=== PATIENT | female | born 1950 | race Asian ===

== ENCOUNTER 2017-10-08 23:25 | Inpatient (IN) | payer MEDICARE, OTHER, MEDICAID ==
[2017-10-09 00:38] LABS: ADD MAN DIFF? NO
[2017-10-09 00:47] LABS: BASOPHILS % 0.5 % (0.0-2.0); EOSINOPHILS % 0.7 % (0.0-7.0); HEMATOCRIT 39.5 % (37.0-47.0); HEMOGLOBIN 13.1 g/dl (12.0-16.0); IMMATURE GRANS #M 0.02 10^3/ul; IMMATURE GRANS % (M) 0.5 %; LYMPHOCYTES # 1.2 10^3/ul (0.8-2.9); LYMPHOCYTES % 27.1 % (15.0-51.0); MEAN CORPUSCULAR HEMOGLOBIN 29.5 pg (29.0-33.0); MEAN CORPUSCULAR HGB CONC 33.2 g/dl (32.0-37.0); MEAN PLATELET VOLUME 10.1 fl (7.4-10.4); MONOCYTE # 0.3 10^3/ul (0.3-0.9); MONOCYTES % 7.3 % (0.0-11.0); NEUTROPHIL # 2.8 10^3/ul (1.6-7.5); NEUTROPHILS % 63.9 % (39.0-77.0); PLATELET COUNT 268 10^3/UL (140-415); RED BLOOD COUNT 4.44 10^6/ul (4.20-5.40); RED CELL DISTRIBUTION WIDTH 12.5 % (11.5-14.5)
[2017-10-09 00:47] LABS: WHITE BLOOD COUNT 4.4 10^3/ul (4.8-10.8)
[2017-10-09 01:04] LABS: ANION GAP 14 (8-16); BLOOD UREA NITROGEN 16 mg/dl (7-20); CALCIUM 9.8 mg/dl (8.4-10.2); CARBON DIOXIDE 29 mmol/L (21-31); CHLORIDE 100 mmol/L (97-110); CREATININE 0.94 mg/dl (0.44-1.00); GLUCOSE 356 mg/dl (70-220); POTASSIUM 4.5 mmol/L (3.5-5.1); SODIUM 138 mmol/L (135-144)
[2017-10-09 01:07] LABS: PROTIME 12.2 Sec (11.9-14.9)
[2017-10-09 01:08] LABS: PARTIAL THROMBOPLASTIN TIME 32.4 Sec (25.0-35.0)
[2017-10-09 01:15] LABS: TROPONIN-I < 0.010 ng/ml (0.000-0.120)
[2017-10-09] MEDS: INSULIN LISPRO 100 UNIT/ML VIAL SC (03:41)
[2017-10-09] MEDS ORDERED: ACETAMINOPHEN 325 MG TAB PO (04:00)
[2017-10-09] MEDS ORDERED: BISACODYL (EC) 5 MG TAB PO (04:00)
[2017-10-09] MEDS ORDERED: DOCUSATE SODIUM 100 MG CAP PO (04:00)
[2017-10-09] MEDS ORDERED: NACL 0.9% 3 ML SYG IV (04:00)
[2017-10-09] MEDS: MECLIZINE 12.5 MG TAB PO (04:55)
[2017-10-09] MEDS ORDERED: hydrALAzine 20 MG INJ IV (05:00)
[2017-10-09 06:08] LABS: CHOL/HDL RATIO 5.5 RATIO; CHOLESTEROL 259 mg/dl (100-200); HDL CHOLESTEROL 47 mg/dl (35-98); LDL CHOLESTEROL,CALCULATED 181 mg/dl; TRIGLYCERIDES 157 mg/dl (0-149)
[2017-10-09 06:08] LABS: MAGNESIUM 1.9 mg/dl (1.7-2.5)
[2017-10-09 06:10] LABS: HEMOGLOBIN A1C 8.4 % (0-5.9)
[2017-10-09] MEDS ORDERED: GLUCAGON 1 MG INJ IM (08:00)
[2017-10-09] MEDS: INSULIN ASPART [NOVOLOG] 3 ML PEN SC ×4 (08:00→20:41)
[2017-10-09] MEDS ORDERED: GLUCOSE GEL 15 GRAM TUBE PO ×2 (08:00)
[2017-10-09] MEDS ORDERED: GLUCOSE GEL 15 GRAM TUBE BUCCAL (08:00)
[2017-10-09] MEDS ORDERED: DEXTROSE 50% 50 ML SYRINGE IV ×2 (08:00)
[2017-10-09] MEDS: ASPIRIN (EC) 81 MG TAB PO ×2 (09:00→09:25)
[2017-10-09] MEDS: CHOLECALCIFEROL 1,000 UNIT TAB PO (09:24)
[2017-10-09] MEDS: ESCITALOPRAM 10 MG TAB PO (09:25)
[2017-10-09] MEDS: ATORVASTATIN 40 MG TAB PO (20:41)
[2017-10-10] MEDS: ACCU-CHEK XX (02:00)
[2017-10-10 06:12] LABS: ADD MAN DIFF? NO
[2017-10-10 06:20] LABS: BASOPHILS % 0.6 % (0.0-2.0); EOSINOPHILS # 0.1 10^3/ul (0.0-0.5); EOSINOPHILS % 1.7 % (0.0-7.0); HEMATOCRIT 41.1 % (37.0-47.0); HEMOGLOBIN 13.5 g/dl (12.0-16.0); IMMATURE GRANS #M 0.02 10^3/ul; IMMATURE GRANS % (M) 0.4 %; LYMPHOCYTES # 1.8 10^3/ul (0.8-2.9); LYMPHOCYTES % 33.6 % (15.0-51.0); MEAN CORPUSCULAR HEMOGLOBIN 28.9 pg (29.0-33.0); MEAN CORPUSCULAR HGB CONC 32.8 g/dl (32.0-37.0); MEAN PLATELET VOLUME 9.8 fl (7.4-10.4); MONOCYTE # 0.4 10^3/ul (0.3-0.9); MONOCYTES % 6.8 % (0.0-11.0); NEUTROPHIL # 3.1 10^3/ul (1.6-7.5); NEUTROPHILS % 56.9 % (39.0-77.0); PLATELET COUNT 267 10^3/UL (140-415); RED BLOOD COUNT 4.67 10^6/ul (4.20-5.40); RED CELL DISTRIBUTION WIDTH 12.7 % (11.5-14.5)
[2017-10-10 06:20] LABS: WHITE BLOOD COUNT 5.5 10^3/ul (4.8-10.8)
[2017-10-10 06:36] LABS: ALANINE AMINOTRANSFERASE 67 IU/L (13-69); ALBUMIN 4.3 g/dl (3.3-4.9); ALKALINE PHOSPHATASE 59 IU/L (42-121); ANION GAP 14 (8-16); ASPARTATE AMINO TRANSFERASE 62 IU/L (15-46); BILIRUBIN,INDIRECT 0.7 mg/dl (0-1.1); BILIRUBIN,TOTAL 0.7 mg/dl (0.2-1.3); BLOOD UREA NITROGEN 16 mg/dl (7-20); CALCIUM 9.2 mg/dl (8.4-10.2); CARBON DIOXIDE 26 mmol/L (21-31); CHLORIDE 105 mmol/L (97-110); CREATININE 0.65 mg/dl (0.44-1.00); GLUCOSE 195 mg/dl (70-220); SODIUM 141 mmol/L (135-144); TOTAL PROTEIN 7.6 g/dl (6.1-8.1)
[2017-10-10 07:03] LABS: THYROID STIMULATING HORMONE 0.556 MIU/L (0.465-4.680)
[2017-10-10] MEDS: INSULIN ASPART [NOVOLOG] 3 ML PEN SC ×4 (07:46→21:00)
[2017-10-10] MEDS: ASPIRIN (EC) 81 MG TAB PO (09:00)
[2017-10-10] MEDS: ESCITALOPRAM 10 MG TAB PO (09:11)
[2017-10-10] MEDS: CHOLECALCIFEROL 1,000 UNIT TAB PO (09:11)
[2017-10-10] MEDS: ATORVASTATIN 40 MG TAB PO (21:34)
[2017-10-11] MEDS: ACCU-CHEK XX (02:00)
[2017-10-11] MEDS: INSULIN ASPART [NOVOLOG] 3 ML PEN SC ×5 (08:00→20:38)
[2017-10-11] MEDS: ESCITALOPRAM 10 MG TAB PO (08:11)
[2017-10-11] MEDS: CHOLECALCIFEROL 1,000 UNIT TAB PO (08:11)
[2017-10-11] MEDS: ASPIRIN (EC) 81 MG TAB PO (08:11)
[2017-10-11] MEDS ORDERED: KETOROLAC 15 MG INJ IV (12:00)
[2017-10-11] MEDS: KETOROLAC 15 MG INJ IV (12:15)
[2017-10-11] MEDS: MECLIZINE 12.5 MG TAB PO ×2 (12:15→20:36)
[2017-10-11] MEDS: ATORVASTATIN 40 MG TAB PO (20:38)
[2017-10-11] MEDS: INSULIN GLARGINE [LANTus] (100 UNITS/ML) SYG SC (20:39)
[2017-10-12] MEDS: ACCU-CHEK XX (01:01)
[2017-10-12] MEDS ORDERED: ACCU-CHEK XX ×3 (02:00)
[2017-10-12] MEDS: MECLIZINE 12.5 MG TAB PO ×2 (08:31→12:17)
[2017-10-12] MEDS: ASPIRIN (EC) 81 MG TAB PO (08:31)
[2017-10-12] MEDS: ESCITALOPRAM 10 MG TAB PO (08:31)
[2017-10-12] MEDS: CHOLECALCIFEROL 1,000 UNIT TAB PO (08:31)
[2017-10-12] MEDS: INSULIN ASPART [NOVOLOG] 3 ML PEN SC ×7 (08:38→20:17)
[2017-10-12] MEDS: AMLODIPINE 10 MG TAB PO (08:40)
[2017-10-12] MEDS: DIMENHYDRINATE 50 MG TAB PO (17:07)
[2017-10-12] MEDS: ONDANSETRON 4 MG INJ IV (17:07)
[2017-10-12] MEDS: ATORVASTATIN 40 MG TAB PO (20:16)
[2017-10-12] MEDS: INSULIN GLARGINE [LANTus] (100 UNITS/ML) SYG SC (20:16)
[2017-10-12] MEDS: MECLIZINE 25 MG TAB PO (20:16)
[2017-10-13] MEDS: ACCU-CHEK XX (02:00)
[2017-10-13 05:48] LABS: ADD MAN DIFF? NO
[2017-10-13 05:57] LABS: WHITE BLOOD COUNT 5.8 10^3/ul (4.8-10.8)
[2017-10-13 05:57] LABS: BASOPHILS % 0.3 % (0.0-2.0); EOSINOPHILS # 0.1 10^3/ul (0.0-0.5); EOSINOPHILS % 1.5 % (0.0-7.0); HEMATOCRIT 42.8 % (37.0-47.0); IMMATURE GRANS #M 0.02 10^3/ul; IMMATURE GRANS % (M) 0.3 %; LYMPHOCYTES % 34.9 % (15.0-51.0); MEAN CORPUSCULAR HEMOGLOBIN 28.8 pg (29.0-33.0); MEAN CORPUSCULAR HGB CONC 32.7 g/dl (32.0-37.0); MEAN CORPUSCULAR VOLUME 88.1 fl (82.0-101.0); MEAN PLATELET VOLUME 9.9 fl (7.4-10.4); MONOCYTE # 0.4 10^3/ul (0.3-0.9); MONOCYTES % 7.4 % (0.0-11.0); NEUTROPHIL # 3.2 10^3/ul (1.6-7.5); NEUTROPHILS % 55.6 % (39.0-77.0); PLATELET COUNT 294 10^3/UL (140-415); RED BLOOD COUNT 4.86 10^6/ul (4.20-5.40); RED CELL DISTRIBUTION WIDTH 12.4 % (11.5-14.5)
[2017-10-13 06:35] LABS: ANION GAP 14 (8-16); BLOOD UREA NITROGEN 23 mg/dl (7-20); CALCIUM 9.4 mg/dl (8.4-10.2); CARBON DIOXIDE 28 mmol/L (21-31); CHLORIDE 106 mmol/L (97-110); CREATININE 0.82 mg/dl (0.44-1.00); GLUCOSE 149 mg/dl (70-220); SODIUM 144 mmol/L (135-144)
[2017-10-13 06:36] LABS: MAGNESIUM 1.9 mg/dl (1.7-2.5)
[2017-10-13 06:36] LABS: PHOSPHORUS 4.5 mg/dl (2.5-4.9)
[2017-10-13] MEDS: INSULIN ASPART [NOVOLOG] 3 ML PEN SC ×6 (08:01→17:14)
[2017-10-13] MEDS: MECLIZINE 25 MG TAB PO ×2 (08:59→13:19)
[2017-10-13] MEDS: ASPIRIN (EC) 81 MG TAB PO (08:59)
[2017-10-13] MEDS: CHOLECALCIFEROL 1,000 UNIT TAB PO (08:59)
[2017-10-13] MEDS: AMLODIPINE 10 MG TAB PO (09:00)
[2017-10-13] MEDS: ESCITALOPRAM 10 MG TAB PO (09:00)
== END 2017-10-13 18:15 | disposition short-term general hospital (02) | DRG 149 ==
LOC: E/R 23:25 → 5EC 10-11 23:30 → 6WM 10-09 03:10
DX: H83.09 Labyrinthitis, unspecified ear (principal); E78.5 Hyperlipidemia, unspecified; E11.9 Type 2 diabetes mellitus without complications; I10 Essential (primary) hypertension; Z86.73 Personal history of transient ischemic attack (TIA), and cerebral infarction without residual deficits; Z79.82 Long term (current) use of aspirin; Z79.84 Long term (current) use of oral hypoglycemic drugs
CPT/HCPCS: 36415; 70450; 70551; 71045; 72125; 80048; 80053; 80061; 82962; 83036; 83735; 84100; 84443; 84484; 85025; 85610; 85730; 93005; 93306; 97110; 97116; 97163; 97165; 99285-25

== ENCOUNTER 2017-10-13 19:14 | Inpatient (IN) | payer MEDICARE, OTHER ==
[2017-10-13] MEDS ORDERED: MAGNESIUM HYDROXIDE 30ML CUP PO (20:30)
[2017-10-13] MEDS ORDERED: LACTULOSE 30ML CUP PO (20:30)
[2017-10-13] MEDS ORDERED: GLUCAGON 1 MG INJ IM (21:30)
[2017-10-13] MEDS ORDERED: KETOROLAC 15 MG INJ IV (21:30)
[2017-10-13] MEDS ORDERED: BISACODYL (EC) 5 MG TAB PO (21:30)
[2017-10-13] MEDS ORDERED: DEXTROSE 50% 50 ML SYRINGE IV ×2 (21:30)
[2017-10-13] MEDS ORDERED: GLUCOSE GEL 15 GRAM TUBE PO ×2 (21:30)
[2017-10-13] MEDS ORDERED: GLUCOSE GEL 15 GRAM TUBE BUCCAL (21:30)
[2017-10-13] MEDS ORDERED: ONDANSETRON 4 MG INJ IV (21:30)
[2017-10-13] MEDS ORDERED: ACETAMINOPHEN 325 MG TAB PO (21:30)
[2017-10-13] MEDS: INSULIN ASPART [NOVOLOG] 3 ML PEN SC (22:00)
[2017-10-13] MEDS: ATORVASTATIN 40 MG TAB PO (22:55)
[2017-10-13] MEDS: MECLIZINE 25 MG TAB PO (22:59)
[2017-10-13] MEDS: INSULIN GLARGINE [LANTus] (100 UNITS/ML) SYG SC (23:05)
[2017-10-14 02:03] LABS: ADD UMIC YES; UR ASCORBIC ACID NEGATIVE (NEGATIVE); UR BILIRUBIN (Dip) NEGATIVE (NEGATIVE); UR BLOOD (Dip) NEGATIVE (NEGATIVE); UR CLARITY CLEAR (CLEAR); UR COLOR YELLOW (YELLOW); UR GLUCOSE (Dip) 3+ mg/dL (NEGATIVE); UR KETONES (Dip) NEGATIVE (NEGATIVE); UR LEUKOCYTE ESTERASE (Dip) TRACE Leu/ul (NEGATIVE); UR NITRITE (Dip) NEGATIVE (NEGATIVE); UR RBC 0 /HPF (0-5); UR SPECIFIC GRAVITY (Dip) 1.018 (1.003-1.030); UR SQUAMOUS EPITHELIAL CELL FEW /HPF (FEW); UR TOTAL PROTEIN (Dip) NEGATIVE (NEGATIVE); UR UROBILINOGEN (Dip) NEGATIVE (NEGATIVE); UR WBC 7 /HPF (0-5)
[2017-10-14 06:52] LABS: ADD MAN DIFF? NO
[2017-10-14 07:05] LABS: BASOPHILS % 0.6 % (0.0-2.0); EOSINOPHILS # 0.1 10^3/ul (0.0-0.5); EOSINOPHILS % 1.2 % (0.0-7.0); HEMATOCRIT 40.3 % (37.0-47.0); HEMOGLOBIN 13.5 g/dl (12.0-16.0); LYMPHOCYTES # 1.9 10^3/ul (0.8-2.9); MEAN CORPUSCULAR HEMOGLOBIN 29.3 pg (29.0-33.0); MEAN CORPUSCULAR HGB CONC 33.5 g/dl (32.0-37.0); MEAN CORPUSCULAR VOLUME 87.4 fl (82.0-101.0); MEAN PLATELET VOLUME 9.8 fl (7.4-10.4); MONOCYTE # 0.4 10^3/ul (0.3-0.9); MONOCYTES % 7.5 % (0.0-11.0); NEUTROPHIL # 2.7 10^3/ul (1.6-7.5); NEUTROPHILS % 53.5 % (39.0-77.0); PLATELET COUNT 269 10^3/UL (140-415); RED BLOOD COUNT 4.61 10^6/ul (4.20-5.40); RED CELL DISTRIBUTION WIDTH 12.3 % (11.5-14.5)
[2017-10-14 07:05] LABS: WHITE BLOOD COUNT 5.1 10^3/ul (4.8-10.8)
[2017-10-14 07:35] LABS: ALANINE AMINOTRANSFERASE 74 IU/L (13-69); ALBUMIN 3.9 g/dl (3.3-4.9); ALBUMIN/GLOBULIN RATIO 1.21; ALKALINE PHOSPHATASE 60 IU/L (42-121); ANION GAP 13 (8-16); ASPARTATE AMINO TRANSFERASE 50 IU/L (15-46); BILIRUBIN,INDIRECT 0.6 mg/dl (0-1.1); BILIRUBIN,TOTAL 0.6 mg/dl (0.2-1.3); BLOOD UREA NITROGEN 21 mg/dl (7-20); CALCIUM 9.2 mg/dl (8.4-10.2); CARBON DIOXIDE 30 mmol/L (21-31); CHLORIDE 105 mmol/L (97-110); CREATININE 0.82 mg/dl (0.44-1.00); GLUCOSE 155 mg/dl (70-220); SODIUM 144 mmol/L (135-144); TOTAL PROTEIN 7.1 g/dl (6.1-8.1)
[2017-10-14] MEDS: INSULIN ASPART [NOVOLOG] 3 ML PEN SC ×5 (08:36→21:00)
[2017-10-14] MEDS: ASPIRIN (EC) 81 MG TAB PO (08:38)
[2017-10-14] MEDS: ESCITALOPRAM 10 MG TAB PO (08:38)
[2017-10-14] MEDS: CHOLECALCIFEROL 1,000 UNIT TAB PO (08:39)
[2017-10-14] MEDS: AMLODIPINE 10 MG TAB PO (08:44)
[2017-10-14] MEDS: MECLIZINE 25 MG TAB PO ×3 (10:51→21:17)
[2017-10-14] MEDS: metFORMIN 500 MG TAB PO (17:33)
[2017-10-14] MEDS: ATORVASTATIN 40 MG TAB PO (21:17)
[2017-10-14] MEDS: INSULIN GLARGINE [LANTus] (100 UNITS/ML) SYG SC (21:21)
[2017-10-15] MEDS: INSULIN ASPART [NOVOLOG] 3 ML PEN SC ×4 (07:48→21:09)
[2017-10-15] MEDS: metFORMIN 500 MG TAB PO ×2 (07:50→17:12)
[2017-10-15] MEDS: ESCITALOPRAM 10 MG TAB PO (08:54)
[2017-10-15] MEDS: MECLIZINE 25 MG TAB PO ×3 (08:54→21:02)
[2017-10-15] MEDS: AMLODIPINE 10 MG TAB PO (08:54)
[2017-10-15] MEDS: CHOLECALCIFEROL 1,000 UNIT TAB PO (08:54)
[2017-10-15] MEDS: ASPIRIN (EC) 81 MG TAB PO (08:54)
[2017-10-15] MEDS ORDERED: VITAMIN A & D 5 GM OINT PACKET TOP (11:47)
[2017-10-15] MEDS: ATORVASTATIN 40 MG TAB PO (21:02)
[2017-10-15] MEDS: INSULIN GLARGINE [LANTus] (100 UNITS/ML) SYG SC (21:09)
[2017-10-16] MEDS: INSULIN ASPART [NOVOLOG] 3 ML PEN SC ×4 (07:35→20:54)
[2017-10-16] MEDS: metFORMIN 500 MG TAB PO ×2 (07:42→17:27)
[2017-10-16] MEDS: ASPIRIN (EC) 81 MG TAB PO (08:50)
[2017-10-16] MEDS: MECLIZINE 25 MG TAB PO ×3 (08:51→20:47)
[2017-10-16] MEDS: CHOLECALCIFEROL 1,000 UNIT TAB PO (08:51)
[2017-10-16] MEDS: ESCITALOPRAM 10 MG TAB PO (08:51)
[2017-10-16] MEDS: AMLODIPINE 10 MG TAB PO (08:52)
[2017-10-16] MEDS: FOSFOMYCIN 3 GM PACKET PO (19:42)
[2017-10-16] MEDS: ATORVASTATIN 40 MG TAB PO (20:47)
[2017-10-16] MEDS: INSULIN GLARGINE [LANTus] (100 UNITS/ML) SYG SC (20:55)
[2017-10-17] MEDS: INSULIN ASPART [NOVOLOG] 3 ML PEN SC ×4 (07:35→20:56)
[2017-10-17] MEDS: AMLODIPINE 10 MG TAB PO (08:06)
[2017-10-17] MEDS: metFORMIN 500 MG TAB PO ×2 (08:06→17:21)
[2017-10-17] MEDS: CHOLECALCIFEROL 1,000 UNIT TAB PO (08:06)
[2017-10-17] MEDS: MECLIZINE 25 MG TAB PO ×3 (08:06→20:50)
[2017-10-17] MEDS: ESCITALOPRAM 10 MG TAB PO (08:06)
[2017-10-17] MEDS: ASPIRIN (EC) 81 MG TAB PO (08:07)
[2017-10-17] MEDS: ATORVASTATIN 40 MG TAB PO (20:50)
[2017-10-17] MEDS: INSULIN GLARGINE [LANTus] (100 UNITS/ML) SYG SC (20:57)
[2017-10-18] MEDS: INSULIN ASPART [NOVOLOG] 3 ML PEN SC ×4 (07:30→20:48)
[2017-10-18] MEDS: metFORMIN 500 MG TAB PO ×2 (07:31→17:16)
[2017-10-18] MEDS: CHOLECALCIFEROL 1,000 UNIT TAB PO (08:33)
[2017-10-18] MEDS: MECLIZINE 25 MG TAB PO ×3 (08:33→20:48)
[2017-10-18] MEDS: ESCITALOPRAM 10 MG TAB PO (08:34)
[2017-10-18] MEDS: AMLODIPINE 10 MG TAB PO (08:34)
[2017-10-18] MEDS: ASPIRIN (EC) 81 MG TAB PO (08:34)
[2017-10-18] MEDS: ATORVASTATIN 40 MG TAB PO (20:48)
[2017-10-18] MEDS: INSULIN GLARGINE [LANTus] (100 UNITS/ML) SYG SC (20:54)
[2017-10-19] MEDS: INSULIN ASPART [NOVOLOG] 3 ML PEN SC ×4 (07:35→20:50)
[2017-10-19] MEDS: MECLIZINE 25 MG TAB PO ×3 (08:28→20:40)
[2017-10-19] MEDS: ESCITALOPRAM 10 MG TAB PO (08:28)
[2017-10-19] MEDS: CHOLECALCIFEROL 1,000 UNIT TAB PO (08:29)
[2017-10-19] MEDS: metFORMIN 500 MG TAB PO ×2 (08:30→17:32)
[2017-10-19] MEDS: ASPIRIN (EC) 81 MG TAB PO (08:30)
[2017-10-19] MEDS: AMLODIPINE 10 MG TAB PO (08:30)
[2017-10-19] MEDS: ATORVASTATIN 40 MG TAB PO (20:40)
[2017-10-19] MEDS: INSULIN GLARGINE [LANTus] (100 UNITS/ML) SYG SC (20:50)
[2017-10-20] MEDS: INSULIN ASPART [NOVOLOG] 3 ML PEN SC ×4 (07:35→20:37)
[2017-10-20] MEDS: MECLIZINE 25 MG TAB PO ×3 (08:15→20:30)
[2017-10-20] MEDS: ESCITALOPRAM 10 MG TAB PO (08:15)
[2017-10-20] MEDS: metFORMIN 500 MG TAB PO ×2 (08:15→17:35)
[2017-10-20] MEDS: CHOLECALCIFEROL 1,000 UNIT TAB PO (08:16)
[2017-10-20] MEDS: AMLODIPINE 10 MG TAB PO (08:16)
[2017-10-20] MEDS: ASPIRIN (EC) 81 MG TAB PO (08:16)
[2017-10-20] MEDS: ONDANSETRON (ODT) 4 MG TAB ODT (19:30)
[2017-10-20] MEDS: ATORVASTATIN 40 MG TAB PO (20:30)
[2017-10-20] MEDS: INSULIN GLARGINE [LANTus] (100 UNITS/ML) SYG SC (20:36)
[2017-10-21] MEDS: INSULIN ASPART [NOVOLOG] 3 ML PEN SC ×4 (07:35→21:00)
[2017-10-21] MEDS: ASPIRIN (EC) 81 MG TAB PO (08:13)
[2017-10-21] MEDS: ESCITALOPRAM 10 MG TAB PO (08:13)
[2017-10-21] MEDS: metFORMIN 500 MG TAB PO ×2 (08:13→17:24)
[2017-10-21] MEDS: MECLIZINE 25 MG TAB PO ×3 (08:13→20:55)
[2017-10-21] MEDS: CHOLECALCIFEROL 1,000 UNIT TAB PO (08:14)
[2017-10-21] MEDS: AMLODIPINE 10 MG TAB PO (08:14)
[2017-10-21] MEDS: ONDANSETRON (ODT) 4 MG TAB ODT (10:04)
[2017-10-21 12:53] LABS: ADD MAN DIFF? NO
[2017-10-21 12:57] LABS: BASOPHILS % 0.6 % (0.0-2.0); EOSINOPHILS # 0.1 10^3/ul (0.0-0.5); EOSINOPHILS % 1.1 % (0.0-7.0); HEMATOCRIT 40.8 % (37.0-47.0); HEMOGLOBIN 13.5 g/dl (12.0-16.0); LYMPHOCYTES # 1.4 10^3/ul (0.8-2.9); MEAN CORPUSCULAR HEMOGLOBIN 28.9 pg (29.0-33.0); MEAN CORPUSCULAR HGB CONC 33.1 g/dl (32.0-37.0); MEAN CORPUSCULAR VOLUME 87.4 fl (82.0-101.0); MEAN PLATELET VOLUME 9.7 fl (7.4-10.4); MONOCYTE # 0.4 10^3/ul (0.3-0.9); MONOCYTES % 6.7 % (0.0-11.0); NEUTROPHIL # 3.5 10^3/ul (1.6-7.5); NEUTROPHILS % 65.2 % (39.0-77.0); PLATELET COUNT 309 10^3/UL (140-415); RED BLOOD COUNT 4.67 10^6/ul (4.20-5.40); RED CELL DISTRIBUTION WIDTH 12.1 % (11.5-14.5)
[2017-10-21 12:57] LABS: WHITE BLOOD COUNT 5.4 10^3/ul (4.8-10.8)
[2017-10-21 13:25] LABS: ANION GAP 15 (8-16); BLOOD UREA NITROGEN 18 mg/dl (7-20); CALCIUM 9.1 mg/dl (8.4-10.2); CARBON DIOXIDE 26 mmol/L (21-31); CHLORIDE 104 mmol/L (97-110); GLUCOSE 184 mg/dl (70-220); MAGNESIUM 1.8 mg/dl (1.7-2.5); POTASSIUM 3.8 mmol/L (3.5-5.1); SODIUM 141 mmol/L (135-144)
[2017-10-21] MEDS: ATORVASTATIN 40 MG TAB PO (20:55)
[2017-10-21] MEDS: INSULIN GLARGINE [LANTus] (100 UNITS/ML) SYG SC (20:59)
[2017-10-22] MEDS: INSULIN ASPART [NOVOLOG] 3 ML PEN SC ×4 (07:35→20:47)
[2017-10-22] MEDS: metFORMIN 500 MG TAB PO ×2 (07:56→17:28)
[2017-10-22] MEDS: AMLODIPINE 10 MG TAB PO (08:57)
[2017-10-22] MEDS: MECLIZINE 25 MG TAB PO ×3 (08:57→20:47)
[2017-10-22] MEDS: CHOLECALCIFEROL 1,000 UNIT TAB PO (08:57)
[2017-10-22] MEDS: ASPIRIN (EC) 81 MG TAB PO (08:57)
[2017-10-22] MEDS: ESCITALOPRAM 10 MG TAB PO (08:58)
[2017-10-22] MEDS: ATORVASTATIN 40 MG TAB PO (20:47)
[2017-10-22] MEDS: INSULIN GLARGINE [LANTus] (100 UNITS/ML) SYG SC (20:50)
[2017-10-23] MEDS: INSULIN ASPART [NOVOLOG] 3 ML PEN SC ×4 (07:35→21:09)
[2017-10-23] MEDS: metFORMIN 500 MG TAB PO ×2 (07:49→17:18)
[2017-10-23] MEDS: CHOLECALCIFEROL 1,000 UNIT TAB PO (08:05)
[2017-10-23] MEDS: ESCITALOPRAM 10 MG TAB PO (08:05)
[2017-10-23] MEDS: ASPIRIN (EC) 81 MG TAB PO (08:05)
[2017-10-23] MEDS: AMLODIPINE 10 MG TAB PO (08:17)
[2017-10-23] MEDS: MECLIZINE 25 MG TAB PO ×3 (08:17→21:00)
[2017-10-23] MEDS: ATORVASTATIN 40 MG TAB PO (21:00)
[2017-10-23] MEDS: INSULIN GLARGINE [LANTus] (100 UNITS/ML) SYG SC (21:08)
[2017-10-24] MEDS: INSULIN ASPART [NOVOLOG] 3 ML PEN SC ×4 (07:35→20:52)
[2017-10-24] MEDS: metFORMIN 500 MG TAB PO ×2 (08:20→17:57)
[2017-10-24] MEDS: ONDANSETRON (ODT) 4 MG TAB ODT (08:21)
[2017-10-24] MEDS: ASPIRIN (EC) 81 MG TAB PO (08:21)
[2017-10-24] MEDS: CHOLECALCIFEROL 1,000 UNIT TAB PO (08:21)
[2017-10-24] MEDS: MECLIZINE 25 MG TAB PO ×3 (08:21→20:45)
[2017-10-24] MEDS: ESCITALOPRAM 10 MG TAB PO (08:21)
[2017-10-24] MEDS: AMLODIPINE 10 MG TAB PO (08:22)
[2017-10-24] MEDS: ATORVASTATIN 40 MG TAB PO (20:45)
[2017-10-24] MEDS: INSULIN GLARGINE [LANTus] (100 UNITS/ML) SYG SC (20:50)
[2017-10-25] MEDS: INSULIN ASPART [NOVOLOG] 3 ML PEN SC ×4 (07:33→20:34)
[2017-10-25] MEDS: metFORMIN 500 MG TAB PO ×2 (07:33→17:26)
[2017-10-25] MEDS: ESCITALOPRAM 10 MG TAB PO (08:31)
[2017-10-25] MEDS: CHOLECALCIFEROL 1,000 UNIT TAB PO (08:31)
[2017-10-25] MEDS: MECLIZINE 25 MG TAB PO ×3 (08:31→20:26)
[2017-10-25] MEDS: ASPIRIN (EC) 81 MG TAB PO (08:31)
[2017-10-25] MEDS: AMLODIPINE 10 MG TAB PO (08:32)
[2017-10-25] MEDS: ATORVASTATIN 40 MG TAB PO (20:26)
[2017-10-25] MEDS: INSULIN GLARGINE [LANTus] (100 UNITS/ML) SYG SC (20:34)
[2017-10-26] MEDS: INSULIN ASPART [NOVOLOG] 3 ML PEN SC ×4 (07:34→20:54)
[2017-10-26] MEDS: AMLODIPINE 10 MG TAB PO (08:11)
[2017-10-26] MEDS: CHOLECALCIFEROL 1,000 UNIT TAB PO (08:18)
[2017-10-26] MEDS: ESCITALOPRAM 10 MG TAB PO (08:18)
[2017-10-26] MEDS: metFORMIN 500 MG TAB PO ×2 (08:18→17:35)
[2017-10-26] MEDS: MECLIZINE 25 MG TAB PO ×3 (08:18→20:45)
[2017-10-26] MEDS: ASPIRIN (EC) 81 MG TAB PO (08:18)
[2017-10-26] MEDS: DOCUSATE SODIUM 100 MG CAP PO (20:45)
[2017-10-26] MEDS: ATORVASTATIN 40 MG TAB PO (20:45)
[2017-10-26] MEDS: INSULIN GLARGINE [LANTus] (100 UNITS/ML) SYG SC (20:53)
[2017-10-27] MEDS: INSULIN ASPART [NOVOLOG] 3 ML PEN SC ×2 (07:35→12:00)
[2017-10-27] MEDS: metFORMIN 500 MG TAB PO (07:40)
[2017-10-27] MEDS: CHOLECALCIFEROL 1,000 UNIT TAB PO (08:13)
[2017-10-27] MEDS: ESCITALOPRAM 10 MG TAB PO (08:13)
[2017-10-27] MEDS: ASPIRIN (EC) 81 MG TAB PO (08:14)
[2017-10-27] MEDS: MECLIZINE 25 MG TAB PO ×2 (08:14→12:02)
[2017-10-27] MEDS: AMLODIPINE 10 MG TAB PO (08:15)
== END 2017-10-27 16:08 | disposition home health service (06) | DRG 149 ==
LOC: VRC 19:14
PROC: F08Z1ZZ Dressing Techniques Treatment (ICD-10-PCS; principal; 2017-10-13)
PROC: F08Z0ZZ Bathing/Showering Techniques Treatment (ICD-10-PCS; 2017-10-13)
PROC: F08Z2ZZ Grooming/Personal Hygiene Treatment (ICD-10-PCS; 2017-10-13)
PROC: F07Z5ZZ Bed Mobility Treatment (ICD-10-PCS; 2017-10-13)
PROC: F07Z8ZZ Transfer Training Treatment (ICD-10-PCS; 2017-10-13)
PROC: F07Z9ZZ Gait Training/Functional Ambulation Treatment (ICD-10-PCS; 2017-10-13)
DX: H83.09 Labyrinthitis, unspecified ear (principal); N39.0 Urinary tract infection, site not specified; E11.9 Type 2 diabetes mellitus without complications; I10 Essential (primary) hypertension; E78.5 Hyperlipidemia, unspecified; F32.9 Major depressive disorder, single episode, unspecified; Z86.73 Personal history of transient ischemic attack (TIA), and cerebral infarction without residual deficits; G43.909 Migraine, unspecified, not intractable, without status migrainosus; R19.7 Diarrhea, unspecified
CPT/HCPCS: 80048; 80053; 81001; 82962; 83735; 85025; 87075; 87081; 87086; 92507; 92523; 97110; 97116; 97150; 97163; 97167; 97530; 97535; 97542

== ENCOUNTER 2017-11-09 15:07 | Emergency (ER) | payer MEDICARE, OTHER ==
[2017-11-09 15:59] LABS: ADD MAN DIFF? NO
[2017-11-09 16:01] LABS: BASOPHILS % 0.6 % (0.0-2.0); EOSINOPHILS # 0.1 10^3/ul (0.0-0.5); EOSINOPHILS % 1.3 % (0.0-7.0); HEMATOCRIT 37.4 % (37.0-47.0); HEMOGLOBIN 12.4 g/dl (12.0-16.0); LYMPHOCYTES # 1.5 10^3/ul (0.8-2.9); LYMPHOCYTES % 32.4 % (15.0-51.0); MEAN CORPUSCULAR HEMOGLOBIN 28.6 pg (29.0-33.0); MEAN CORPUSCULAR HGB CONC 33.2 g/dl (32.0-37.0); MEAN CORPUSCULAR VOLUME 86.2 fl (82.0-101.0); MEAN PLATELET VOLUME 9.5 fl (7.4-10.4); MONOCYTE # 0.3 10^3/ul (0.3-0.9); MONOCYTES % 7.1 % (0.0-11.0); NEUTROPHIL # 2.7 10^3/ul (1.6-7.5); NEUTROPHILS % 58.4 % (39.0-77.0); PLATELET COUNT 252 10^3/UL (140-415); RED BLOOD COUNT 4.34 10^6/ul (4.20-5.40); RED CELL DISTRIBUTION WIDTH 12.3 % (11.5-14.5)
[2017-11-09 16:01] LABS: WHITE BLOOD COUNT 4.7 10^3/ul (4.8-10.8)
[2017-11-09 16:37] LABS: ALANINE AMINOTRANSFERASE 39 IU/L (13-69); ALBUMIN 4.1 g/dl (3.3-4.9); ALBUMIN/GLOBULIN RATIO 1.36; ALKALINE PHOSPHATASE 50 IU/L (42-121); ANION GAP 12 (8-16); ASPARTATE AMINO TRANSFERASE 27 IU/L (15-46); BILIRUBIN,INDIRECT 0.5 mg/dl (0-1.1); BILIRUBIN,TOTAL 0.5 mg/dl (0.2-1.3); BLOOD UREA NITROGEN 15 mg/dl (7-20); CALCIUM 9.4 mg/dl (8.4-10.2); CARBON DIOXIDE 26 mmol/L (21-31); CHLORIDE 107 mmol/L (97-110); CREATININE 0.59 mg/dl (0.44-1.00); GLUCOSE 178 mg/dl (70-220); LIPASE 61 U/L (23-300); POTASSIUM 3.9 mmol/L (3.5-5.1); SODIUM 141 mmol/L (135-144); TOTAL PROTEIN 7.1 g/dl (6.1-8.1)
[2017-11-09] MEDS: ONDANSETRON 4 MG INJ IV (16:43)
[2017-11-09] MEDS: SOD CHLORIDE 0.9% 1,000 ML IV (16:44)
[2017-11-09 16:48] LABS: TROPONIN-I < 0.012 ng/ml (0.000-0.120)
[2017-11-09 17:01] LABS: ADD UMIC YES; UR ASCORBIC ACID NEGATIVE (NEGATIVE); UR BILIRUBIN (Dip) NEGATIVE (NEGATIVE); UR BLOOD (Dip) NEGATIVE (NEGATIVE); UR CLARITY CLEAR (CLEAR); UR COLOR STRAW (YELLOW); UR GLUCOSE (Dip) 1+ mg/dL (NEGATIVE); UR KETONES (Dip) NEGATIVE (NEGATIVE); UR LEUKOCYTE ESTERASE (Dip) TRACE Leu/ul (NEGATIVE); UR NITRITE (Dip) NEGATIVE (NEGATIVE); UR RBC 0 /HPF (0-5); UR SPECIFIC GRAVITY (Dip) 1.008 (1.003-1.030); UR TOTAL PROTEIN (Dip) NEGATIVE (NEGATIVE); UR UROBILINOGEN (Dip) NEGATIVE (NEGATIVE); UR WBC 3 /HPF (0-5)
== END 2017-11-09 21:56 | disposition home or self-care (01) ==
LOC: E/R 15:07
DX: R51 Headache (principal); H53.8 Other visual disturbances; I10 Essential (primary) hypertension; Z79.82 Long term (current) use of aspirin; Z79.4 Long term (current) use of insulin
CPT/HCPCS: 36415; 70450; 71045; 76536; 80053; 81001; 83690; 84484; 85025; 93005; 96374; 99285-25